=== PATIENT | male | born 1965 | race Caucasian/White ===

== ENCOUNTER 2019-12-02 15:20 | Inpatient (IN) | payer OTHER ==
[~2019-12-02] VITALS: Ht 182.9 cm; Wt 86.2 kg
[2019-12-02 16:26] LABS: BASOPHIL % 0.6 % (0-2); PLATELET COUNT 103 x10^3mcL (130-400); RED CELL DISTRIBUTION WIDTH 15.8 % (11.5-14.5)
[2019-12-02 16:36] LABS: ALKALINE PHOSPHATASE 67 U/L (46-116); ALT/SGPT 58 U/L (16-63); AST/SGOT 53 U/L (15-37); BILIRUBIN TOTAL 1.8 mg/dL (0.20-1.00); CALCIUM 9.2 mg/dL (8.5-10.1); CARBON DIOXIDE 31.1 mmol/L (21-32); CHLORIDE SERUM 97 mmol/L (98-107); CREATININE SERUM 0.9 mg/dL (0.7-1.3); GFR1 > 60 mL/min; GLUCOSE SERUM 117 mg/dL (74-106); SODIUM SERUM 135 mmol/L (136-145); TOTAL PROTEIN, SERUM 6.5 g/dL (6.4-8.2)
[2019-12-02 16:44] LABS: ALBUMIN 3.2 g/dL (3.4-5.0)
[2019-12-02 16:46] LABS: POTASSIUM SERUM 2.7 mmol/L (3.5-5.1)
[2019-12-03 04:19] VITALS: BP 116/72
[2019-12-03 06:36] VITALS: BP 133/72
[2019-12-03 07:59] LABS: ALKALINE PHOSPHATASE 63 U/L (46-116); ALT/SGPT 53 U/L (16-63); AST/SGOT 61 U/L (15-37); BILIRUBIN TOTAL 1.6 mg/dL (0.20-1.00); CALCIUM 8.6 mg/dL (8.5-10.1); CARBON DIOXIDE 26.8 mmol/L (21-32); CHLORIDE SERUM 98 mmol/L (98-107); CREATININE SERUM 0.7 mg/dL (0.7-1.3); GFR1 > 60 mL/min; GLUCOSE SERUM 73 mg/dL (74-106); MAGNESIUM 1.6 mg/dL (1.8-2.4); PHOSPHOROUS 1.3 mg/dL (2.5-4.9); SODIUM SERUM 136 mmol/L (136-145); TOTAL PROTEIN, SERUM 6.2 g/dL (6.4-8.2)
[2019-12-03 08:01] LABS: ALBUMIN 3.1 g/dL (3.4-5.0); POTASSIUM SERUM 2.7 mmol/L (3.5-5.1)
[2019-12-03 08:07] LABS: BASOPHIL % 0.8 % (0-2); PLATELET COUNT 118 x10^3mcL (130-400); RED CELL DISTRIBUTION WIDTH 15.6 % (11.5-14.5)
[2019-12-03 08:47] VITALS: BP 123/79
[2019-12-03 12:03] VITALS: BP 145/86
[2019-12-03 16:10] VITALS: BP 121/72
[2019-12-03 20:00] VITALS: BP 126/77
[2019-12-04 08:38] VITALS: BP 148/92
[2019-12-04 11:54] VITALS: BP 130/65
[2019-12-04 20:50] VITALS: BP 123/79
[2019-12-05] VITALS (7 sets, daily range): BP systolic 120–141; BP diastolic 67–81
[2019-12-05 08:00] LABS: ALKALINE PHOSPHATASE 62 U/L (46-116); ALT/SGPT 44 U/L (16-63); AST/SGOT 51 U/L (15-37); CALCIUM 7.6 mg/dL (8.5-10.1); CARBON DIOXIDE 23.4 mmol/L (21-32); CHLORIDE SERUM 103 mmol/L (98-107); CREATININE SERUM 0.6 mg/dL (0.7-1.3); GFR1 > 60 mL/min; GLUCOSE SERUM 68 mg/dL (74-106); MAGNESIUM 1.3 mg/dL (1.8-2.4); PHOSPHOROUS 2.4 mg/dL (2.5-4.9); POTASSIUM SERUM 3.1 mmol/L (3.5-5.1); SODIUM SERUM 137 mmol/L (136-145)
[2019-12-05 08:01] LABS: ALBUMIN 2.5 g/dL (3.4-5.0); TOTAL PROTEIN, SERUM 5.7 g/dL (6.4-8.2)
[2019-12-05 08:03] LABS: BASOPHIL % 0.7 % (0-2); PLATELET COUNT 156 x10^3mcL (130-400); RED CELL DISTRIBUTION WIDTH 15.8 % (11.5-14.5)
== END 2019-12-05 21:52 | DRG 563 ==
LOC: ED 15:20 → DU 18:23
PROVIDERS: Emergency Medicine; ADMIT Hospitalist; ATTEND Internal Medicine
PROC: 2W3EX1Z Immobilization of Right Hand using Splint (ICD-10-PCS; principal; 2019-12-02)
DX: S42.301A Unspecified fracture of shaft of humerus, right arm, initial encounter for closed fracture (principal); E44.0 Moderate protein-calorie malnutrition; I47.1 Supraventricular tachycardia; F10.239 Alcohol dependence with withdrawal, unspecified; F33.9 Major depressive disorder, recurrent, unspecified; Z20.828 Contact with and (suspected) exposure to other viral communicable diseases; Z88.8 Allergy status to other drugs, medicaments and biological substances; W18.39XA Other fall on same level, initial encounter; Y93.89 Activity, other specified; Y92.89 Other specified places as the place of occurrence of the external cause; Y99.8 Other external cause status; F17.200 Nicotine dependence, unspecified, uncomplicated; E87.6 Hypokalemia; E83.42 Hypomagnesemia; S01.511A Laceration without foreign body of lip, initial encounter; Y90.9 Presence of alcohol in blood, level not specified; F41.9 Anxiety disorder, unspecified
CPT/HCPCS: 90715; 90732; 97116-GP; 97530-GP; G0378; G0480; J1650; J2060; J2405; J3010; J3411; J3475; J3480; J3490; J7030; Q0092